=== PATIENT | male | born 1965 | race Caucasian/White ===

== ENCOUNTER 2019-06-16 18:59 | Emergency (ER) | payer SELFPAY ==
[~2019-06-16] VITALS: Ht 175.3 cm; Wt 113.6 kg
[~2019-06-16 18:59] MED LIST: BACTRIM DS 8001 TAB PO; CLEOCIN HC150 MG/CAP PO; INDOCIN50 MG PO; LEVAQUIN 5500 MG/TA1 PO; LORTAB 5/500 501 TAB PO; NO HOME MEDICATIONS; NORCO 325 MG-51 TAB PO; PRILOSEC 20MG20 MG PO; THERAGRAN1 TA1 PO
[2019-06-16 19:04] VITALS: TEMP 97.7
[2019-06-16 19:24] LABS: BASO # 0.1 (0.0-0.2); BASO % 1.1 % (0.0-2.0); EOS # 0.3 (0.0-0.7); EOS % 3.3 % (0-4.0); GRAN # 4.6 (1.4-6.5); GRAN % 51.3 % (42.2-75.2); LYMPH # 3.1 (1.2-3.4); LYMPH % 35.2 % (20.0-51.0); MEAN CELL VOLUME 91 fl (80.0-100.0); MEAN CORPUSCULAR HEMOGLOBIN 32 pg (27.0-31.0); MEAN CORPUSCULAR HGB CONC 35 g/dl (33.0-37.0); MEAN PLATELET VOLUME 9.2 fl (7.4-10.4); MONO # 0.8 (0.1-0.6); MONO % 8.9 % (1.7-9.3); PLATELET COUNT 194 K/mm3 (130-400); RED BLOOD COUNT 5.04 M/mm3 (4.20-5.60); REDCELL DISTRIBUTION WIDTH-CV 12.6 % (11.5-14.5)
[2019-06-16 19:30] LABS: PROTHROMBIN TIME 11.9 SECONDS (9.7-12.8)
[2019-06-16 19:32] LABS: PARTIAL THROMBOPLASTIN TIME 32.4 SECONDS (26.0-37.0)
[2019-06-16 19:35] LABS: ALANINE AMINOTRANSFERASE 43 U/L (21-72); ALBUMIN 4.5 gm/dL (3.5-5.0); ALKALINE PHOSPHATASE 66 U/L (50-136); ANION GAP 12 mmol/L (7-16); AST,SGOT 38 U/L (15-37); BILIRUBIN,TOTAL 0.5 mg/dL (0.0-1.0); BLOOD UREA NITROGEN 13 mg/dL (9-20); CALCIUM 8.8 mg/dL (8.4-10.2); CARBON DIOXIDE 24 mmol/L (22-30); CHLORIDE 102 mmol/L (98-107); CREATININE, serum 1.19 (0.66-1.25); GLUCOSE 103 mg/dL (74-106); POTASSIUM 4.1 mmol/L (3.4-5.0); SODIUM 137 mmol/L (137-145); TOTAL PROTEIN 7.6 gm/dL (6.4-8.2)
[2019-06-16 19:50] LABS: TROPONIN-I < 0.012 ng/mL (0.000-0.035)
[2019-06-16 21:53] VITALS: BP 124/88; PULSE 80
== END 2019-06-16 21:53 | disposition home or self-care (01) ==
LOC: COL.ER 18:59
PROVIDERS: Family Medicine
DX: R06.00 Dyspnea, unspecified (principal); F17.210 Nicotine dependence, cigarettes, uncomplicated

== ENCOUNTER 2021-02-21 10:25 | Emergency (ER) | payer SELFPAY ==
[~2021-02-21] VITALS: Ht 175.3 cm; Wt 113.6 kg
[2021-02-21 11:22] LABS: BASO # 0.1 (0.0-0.2); EOS # 0.3 (0.0-0.7); EOS % 3.6 % (0-4.0); GRAN # 5.3 (1.4-6.5); GRAN % 61.6 % (42.2-75.2); HEMATOCRIT 47.4 % (42.0-52.0); HEMOGLOBIN 16.5 g/dl (13.5-18.0); LYMPH % 23.5 % (20.0-51.0); MEAN CELL VOLUME 91 fl (80.0-100.0); MEAN CORPUSCULAR HEMOGLOBIN 32 pg (27.0-31.0); MEAN CORPUSCULAR HGB CONC 35 g/dl (33.0-37.0); MEAN PLATELET VOLUME 9.5 fl (7.4-10.4); MONO # 0.9 (0.1-0.6); PLATELET COUNT 199 K/mm3 (130-400); RED BLOOD COUNT 5.21 M/mm3 (4.20-5.60)
[2021-02-21 11:33] LABS: ALBUMIN 4.2 gm/dL (3.5-5.0); BILIRUBIN,TOTAL 0.8 mg/dL (0.0-1.0); C-REACTIVE PROTEIN 0.9 mg/dL (0.0-0.9); CREATININE, serum 0.9 (0.66-1.25); POTASSIUM 4.7 mmol/L (3.4-5.0); TOTAL PROTEIN 7.7 gm/dL (6.4-8.2)
[2021-02-21 11:49] LABS: ERYTHROCYTE SEDIMENTATION RATE 7 mm/hr (0-30)
[2021-02-21] MEDS ORDERED: NEURONTIN100 MG/CAP PO (12:46)
[2021-02-21] MEDS ORDERED: NORCO 325 MG-51 TAB PO (12:46)
[2021-02-21 13:39] VITALS: BP 129/86; PULSE 67; TEMP 16
[2021-04-08] MEDS ORDERED: NEURONTIN600 MG/TAB PO (12:52)
[2021-04-08] MEDS ORDERED: NEURONTIN300 MG/CAP PO (12:52)
== END 2021-02-21 13:43 | disposition home or self-care (01) ==
LOC: COL.ER 10:25
PROVIDERS: Nurse Practitioner
DX: R20.2 Paresthesia of skin (principal); M79.602 Pain in left arm; M79.601 Pain in right arm; M79.605 Pain in left leg; M79.604 Pain in right leg
CPT/HCPCS: J1170

== ENCOUNTER → 2021-02-24 | Outpatient (CLI) | payer SELFPAY ==
[~2021-02-24] MED LIST changes: +NEURONTIN100 MG/CAP PO; +NEURONTIN300 MG/CAP PO; +NEURONTIN600 MG/TAB PO
== END ==
LOC: COL.RAD 07:48
DX: M50.222 Other cervical disc displacement at C5-C6 level (principal); G95.89 Other specified diseases of spinal cord; M48.02 Spinal stenosis, cervical region
CPT/HCPCS: A9585

== ENCOUNTER → 2021-04-07 | Outpatient (CLI) | payer SELFPAY ==
--- NOTE | 2021-04-07 11:36 | NUR ---
PATIENT HAD A COUPLE CUPS OF COFFEE LESS THAN 8 HOURS PRIOR TO TEST.
== END ==
LOC: COL.PUL 10:30
DX: Z01.810 Encounter for preprocedural cardiovascular examination (principal); R60.0 Localized edema; R06.02 Shortness of breath; F17.200 Nicotine dependence, unspecified, uncomplicated

== ENCOUNTER → 2021-04-09 | Outpatient (CLI) | payer SELFPAY | LOC: COL.PUL 07:33 | DX: Z01.810 Encounter for preprocedural cardiovascular examination (principal); R60.0 Localized edema; R06.02 Shortness of breath; F17.200 Nicotine dependence, unspecified, uncomplicated ==

== ENCOUNTER → 2021-04-13 | Outpatient (CLI) | payer SELFPAY ==
[~2021-04-13] VITALS: Ht 175.3 cm; Wt 114.0 kg
[2021-04-13 10:58] VITALS: BP 137/90; PULSE 65; TEMP 97.7
[2021-04-13 11:57] VITALS: BP 139/87; PULSE 80
[2021-04-13 11:58] VITALS: BP 138/91; PULSE 78
[2021-04-13 11:59] VITALS: BP 152/92; PULSE 77
[2021-04-13 12:00] VITALS: BP 152/92; PULSE 77
[2021-04-13 12:01] VITALS: BP 138/88; PULSE 75
== END ==
LOC: COL.CARD 10:31
DX: Z01.810 Encounter for preprocedural cardiovascular examination (principal); R60.0 Localized edema; R06.02 Shortness of breath; F17.200 Nicotine dependence, unspecified, uncomplicated
CPT/HCPCS: A9500; J2785

== ENCOUNTER → 2022-09-27 | Outpatient (CLI) | payer MEDICAID | LOC: MHCPAIN 12:51 | DX: M47.812 Spondylosis without myelopathy or radiculopathy, cervical region (principal); M54.12 Radiculopathy, cervical region | CPT/HCPCS: J0461; J1100; Q9967 ==

== ENCOUNTER → 2023-10-17 | Outpatient (CLI) | payer MEDICARE, MEDICAID | LOC: MHCPAIN 14:05 | DX: M48.02 Spinal stenosis, cervical region (principal); M47.12 Other spondylosis with myelopathy, cervical region | CPT/HCPCS: G0463 ==

== ENCOUNTER → 2023-11-21 | Outpatient (CLI) | payer MEDICARE, MEDICAID | LOC: MHCPAIN 11:05 | DX: M47.817 Spondylosis without myelopathy or radiculopathy, lumbosacral region (principal); M48.061 Spinal stenosis, lumbar region without neurogenic claudication; E88.2 Lipomatosis, not elsewhere classified | CPT/HCPCS: G0463 ==